=== PATIENT | female | born 1995 | race African-American/Black ===

== ENCOUNTER 2016-08-05 10:53 | Emergency (ER) | payer SELFPAY ==
[2016-08-05 11:02] VITALS: BP 136/66; BMI 28.5
== END 2016-08-05 11:31 | disposition left against medical advice (07) ==
LOC: ER 11:09
DX: Z20.2 Contact with and (suspected) exposure to infections with a predominantly sexual mode of transmission (principal); Z53.21 Procedure and treatment not carried out due to patient leaving prior to being seen by health care provider
CPT/HCPCS: 99281